=== PATIENT | male | born 2000 | race Caucasian/White ===

== ENCOUNTER 2021-03-15 17:20 | Emergency (ER) | payer OTHER, SELFPAY ==
[2021-03-15 17:25] VITALS: BP 128/76; PULSE 89; RESP 16; TEMP 36.9; O2SAT 100
[2021-03-15 17:29] VITALS: BP 128/76; PULSE 89; RESP 16; TEMP 36.9; O2SAT 100
--- NOTE | 2021-03-15 17:29 | ED.EAR ---
HPI - Ear Problem General Chief complaint: Ear Stated complaint: ear pain Time Seen by Provider: 03/15/21 17:25 Source: patient and RN notes reviewed Mode of arrival: ambulatory Limitations: no limitations History of Present Illness HPI Narrative: 21-year-old male presents to the [facility] with complaints of left ear pain. Patient states that when he went out to lunch states he felt fine. Got home, took a nap woke up with severe left ear pain that is radiating into the jaw. Denies fevers. No sinus issues. Denies cough, shortness of breath. Denies ear discharge. Denies any seasonal allergy issues No treatment prior to arrival MD Complaint: ear pain (Left) Location: left ear Related Data Home Medications Medication Instructions Recorded Confirmed testosterone cypionate 200 mg/mL 60 mg IM WEEKLY ml 10/29/20 03/15/21 intramuscular oil Allergies Allergy/AdvReac Type Severity Reaction Status Date / Time No Known Allergies Allergy Verified 03/15/21 17:27 Review of Systems Review of Systems: All systems reviewed & are unremarkable except as noted in HPI and below Constitutional: Constitutional: Reports no additional constitutional complaints, Denies chills and Denies fever(s) Eyes: Eyes: Reports no additional eye complaints, Denies change in vision and Denies photophobia ENT: Reports as per HPI, Denies vertigo, Denies nasal congestion and Denies sore throat Comments: Left ear pain Cardiovascular: Cardiovascular: Reports no additional cardiovascular complaints, Denies chest pain, Denies rapid heart rate and Denies radiating jaw, neck or arm pain Respiratory: Respiratory: Reports no additional respiratory complaints, Denies cough, Denies dyspnea and Denies wheezing Gastrointestinal: Gastrointestinal: Reports no additional gastrointestinal complaints, Denies abdominal pain, Denies nausea and Denies vomiting Musculoskeletal: Musculoskeletal: Reports no additional musculoskeletal complaints Integumentary/Breasts: Skin/Breast: Reports system reviewed and no additional complaints, except as docu Neurologic: Reports system reviewed and no additional complaints, except as documented and Denies dizziness Psychiatric: Psychiatric: Reports no additional psychiatric complaints Allergic/Immunologic: Allergic/Immunologic: Reports no additional allergic/immunologic complaints, Denies lip swelling, Denies throat swelling, Denies tongue swelling and Denies wheezing PMFSH Past Medical History Medical History (Updated 03/15/21 @ 17:30 by Fatoumata Lopez) Ankle fracture Anxiety Surgical History Surgical History H/O breast surgery Top surgery 05/23/2019 Family History Family History Father Alcoholism Mother Depression with anxiety Grandparent Alcoholism Diabetes mellitus Heart disease Social History Social History Smoking status: Current every day smoker Tobacco type: smokeless tobacco Alcohol intake: current Comments At the time of my signature, I reviewed and agree with the nursing past medical, surgical, social, and family history. There is no relevant family history pertinent to the patient complaint. Exam Const: General: healthy appearing, no acute distress and alert Nutritional Appearance: well nourished Orientation/consciousness: patient oriented x3 Limitations: no limitations HENMT: Head: normal to inspection Ears: external ears normal, TM normal on the right, EAC's normal and TM abnormal bulging and erythematous on the left General nose exam: Normal external nose present, Normal nares present, Normal nasal mucous membranes and turbinates present and No nasal discharge present Face and sinus: normal facial exam and sinuses nontender Mouth: Yes Normal oral and palatal mucosa present and Yes lip normal Teeth and gingiva: dentition normal Throat:
== END 2021-03-15 17:34 | disposition home or self-care (01) ==
PROVIDERS: Emergency Provider Nurse Practitioner
DX: H66.002 Acute suppurative otitis media without spontaneous rupture of ear drum, left ear (principal); F17.200 Nicotine dependence, unspecified, uncomplicated
CPT/HCPCS: 99213; G0463

== ENCOUNTER 2022-02-05 17:36 | Emergency (ER) | payer OTHER, SELFPAY ==
--- NOTE | ~2022-02-05 | XR_ITS ---
EXAM: XR foot LT min 3V DATE: 02/05/2022 17:51 HISTORY: dropped wood onto left foot, left dorsal foot pain . COMPARISON: None available. FINDINGS: Normal mineralization. No fracture or dislocation. No lytic or blastic lesion. Joint space s are maintained. No erosion or periosteal change. Soft tissues within normal limits. IMPRESSION: No acute osseous finding in the left foot. Reviewed, dictated and finalized at location K.
[2022-02-05 17:46] VITALS: BP 117/80; PULSE 86; RESP 16; TEMP 36.2; O2SAT 100
--- NOTE | 2022-02-05 17:53 | ED.LOWEXIN ---
HPI - Extremity Injury (Lower) General Chief Complaint: Extremity Injury, Lower Stated Complaint: INJURED L FOOT Time Seen by Provider: 02/05/22 17:40 Source: patient and RN notes reviewed History of Present Illness HPI Narrative: Patient is a 22-year-old male who presents the urgent care with contusion to the left foot. Patient states he dropped a loaded 2 x 6 is on his foot today at work and at 10 AM. Patient states that he has been walking on the foot since then. States that he did have a steel toed boot on. Patient has not taken anything [id number] for his pain. Denies of any other injuries. No other complaints. No acute distress noted. Patient aware of the plan of care. Some parts of this dictation were generated by voice recognition software and may contain typographical and/or grammatical inaccuracies. Related Data Allergies Allergy/AdvReac Type Severity Reaction Status Date / Time No Known Allergies Allergy Verified 03/15/21 17:27 Review of Systems Review of Systems: CONSTITUTIONAL: Denies fever, chills, or sweats. EYES: Denies visual changes, redness, or discharge. ENT: Denies rhinorrhea, congestion, sore throat, or otalgia. CARDIOVASCULAR: Denies chest pain, palpitations, or edema. RESPIRATORY: Denies cough or dyspnea. GASTROINTESTINAL: Denies abdominal pain, nausea, vomiting, or diarrhea. GENITOURINARY: Denies dysuria or hematuria. SKIN: Denies rash or itching. MUSCULOSKELETAL: Reports of left foot pain NEUROLOGIC: Denies headache, numbness, or weakness. All other systems reviewed are negative, except as documented in HPI. [facility] Past Medical History Medical History (Updated 02/05/22 @ 18:07 by CONCEPCION Her) Ankle fracture Anxiety Surgical History Surgical History H/O breast surgery Top surgery 05/23/2019 Family History Family History Father Alcoholism Mother Depression with anxiety Grandparent Alcoholism Diabetes mellitus Heart disease Social History Social History Smoking status: Current every day smoker Tobacco type: smokeless tobacco Alcohol intake: current Comments At the time of my signature, I reviewed and agree with the nursing past medical, surgical, social, and family history. There is no relevant family history pertinent to the patient complaint. Exam Narrative: GENERAL: This is a well-nourished, well-developed patient, in no apparent distress. HEAD: normocephalic, atraumatic. EYES: PERRL. Sclera clear/white. Vision is grossly intact. EARS: External ears normal NOSE: External nose normal with no obvious nasal discharge, nares without redness, no rhinorrhea. THROAT: Mucous membranes moist NECK: Neck supple CARDIOVASCULAR: Regular rate and rhythm without murmurs, gallops, or rubs. RESPIRATORY: Clear to auscultation. Breath sounds equal bilaterally. No wheezes, rales, or rhonchi. SKIN: warm, intact with no suspicious lesions or rash, good texture and turgor. NEURO: awake, alert, and oriented to person, place and time. There were no obvious focal neurologic abnormalities. EXTREMITIES: The right 3 area of ecchymosis noted to the dorsal aspect of the left foot with moderate tenderness. No obvious deformity noted. Exacerbated pain on ambulation and flexion. Positive strong left pedal pulse with capillary refill less than 2 seconds. Course Course Level of Care: Express Care Visit Vital Signs Vital signs: Vital Signs Temperature 97.1 F L 02/05/22 17:46 Pulse Rate 86 02/05/22 17:46 Respiratory Rate 16 02/05/22 17:46 Blood Pressure 117/80 02/05/22 17:46 Pulse Oximetry 100 02/05/22 17:46 Temperature 97.1 F L 02/05/22 17:46 Pulse Rate 86 02/05/22 17:46 Respiratory Rate 16 02/05/22 17:46 Blood Pressure 117/80 02/05/22 17:46 Pulse Oximetry 100 02/05/22 17:46 Review
== END 2022-02-05 18:15 | disposition home or self-care (01) ==
PROVIDERS: Emergency Provider Nurse Practitioner Family
DX: S90.32XA Contusion of left foot, initial encounter (principal); W20.8XXA Other cause of strike by thrown, projected or falling object, initial encounter; F17.290 Nicotine dependence, other tobacco product, uncomplicated
CPT/HCPCS: 73630; 99213; G0463